=== PATIENT | male | born 1975 | race African-American/Black ===

== ENCOUNTER 2021-07-23 03:37 | Emergency (ER) | payer OTHER ==
--- NOTE | ~2021-07-23 | EMS ---
[address] [address] EMS Patient Care Report Name: RALEIGH KING Room #: DEP BRENT Trinh#: [id number] Admission: 07/23/21 Attend Phys: Discharge: 07/23/21 Date of : 79 Report #: [id number] THIS REPORT FOR: //name// Report Transmitted: 07/26/2021 14:29 EMS Care Summary [place], [place]/[facility] Incident [id number] @ 07/23/2021 02:45 Incident Location [address] Patient RALEIGH KING Male, 46 Years 1975 Patient Address [address] [place] [address] Patient History Congestive Heart Failure (CHF), Chief Complaint cardiac arrest Disposition Transported Lights/[place] Dispatch Reason Cardiac Arrest/ Transported To [facility] Narrative ems met gfd on scene. several family members were in hallway outside of pts apartment and more family were inside apartment. pt was just inside of apartment doorway and was supine receiving cpr by gfd. gfd stated they administered x3 200j shocks for pts presenting rhythm of vfib. pts stated pt has been in cardiac arrest before and has chf. gfd reported pts witnessed the arrest. small children were present in the room and were witnessing the resuscitation along with adult age family. the apartment had [address] [address] EMS Patient Care Report Name: RALEIGH KING Room #: DEP [facility]..#: [id number] Admission: 07/23/21 Attend Phys: Discharge: 07/23/21 Date of : 79 Report #: [id number] inadequate lighting and ems made the decision to move pt into ambulance due to inadequate conditions and for modesty of pts family. pt was placed on a moe semiconductor engineer and was carried to ems cot. pt was transferred onto ems cot and was secured in a supine position without incident. pt was loaded into ambulance. c120, ems, and x3 gfd were in ambulance. gfd stated they would obtain access. gfd placed a 45mm io in pts L humural head. io aspirated blood contents and flowed patently. pt had heavy emesis present that required frequent heavy suctioning. size 4 igel was placed and secured. etco2 was obtained. pt was administered 6bpm via bvm at 15lpm. pt remained in vfib while on scene and m42 ems delivered a total of x4 200j shocks with 1 shock per rhythm check, plus x3 shocks per gfd correctional officer captain of ems for a total of 7 shocks at 200j. shocks were unable to be administered q 2 min due to lack of als resources and gfd being unfamiliar with [facility] protocols and equipment. pt was administered 300mg amiodarone io. pt was administered a total of x5 epi doses via io at 1mg q 3-5 minutes throughout arrest. pt was administered an additional 150mg amiodarone via io. heavy emesis was suctioned routinely. pt was transported emergent to [facility] with x2 gfd. during transport pts rhythm converted to pea. pt remained in pea for the rest of contact. transport was otherwise uneventful. pt care was transferred to appropriate staff and ems goes back in service. Initial Vitals @03:12P: 0,R: 0, @03:21P: 0,R: 6,EtCO2: 23, @03:22P: 0,R: 6,EtCO2: 20,SpO2: 79, @03:19P: 0,R: 6,EtCO2: 26,SpO2: 72, @03:15P: 0,R: 6,EtCO2: 35,SpO2: 67, @03:16P: 0,R: 6,EtCO2: 35, @03:24P: 0,R: 6,EtCO2: 23,SpO2: 51, @03:27P: 0,R: 6,EtCO2: 14,SpO2: 49, @03:10P: 0,R: 0, @03:21P: 0,R: 6,EtCO2: 20,SpO2: 69, @03:28P: 0,R: 6,EtCO2: 11, @03:39P: 0,R: 6,EtCO2: 23, @03:17P: 0,R: 6,EtCO2: 38,SpO2: 74, @03:33P: 0,R: 6,EtCO2: 17, @03:37P: 0,R: 6,EtCO2: 25, @03:20P: 0,R: 6,EtCO2: 22,SpO2: 73, @03:26P: 0,R: 6,EtCO2: 16,SpO2: 52, @03:27P: 0,R: 6, @03:16P: 0,R: 6,EtCO2: 31,SpO2: 66, @03:38P: 0,R: 6,EtCO2: 19, @03:16P: 0,R: 6,EtCO2: 32, @03:21P: 0,R: 6, @03:11P: 0,R: 0,GCS: 3, @03:09P: 0,R: 0,Pain: 0/10,GCS: 3, @03:13P: 0,R: 6,GCS: 3,Glucose: 157,EtCO2: 13,SpO2: 78, [facility] [address] [place] [address] EMS Patient Care Report Name: RALEIGH KING Room #: DEP Ziggy#: [id number] Admission: 07/23/21 Attend Phys: Discharge: 07/23/21 Date of : 79 Report #: [id number] @03:31P: 0,R: 6,GCS: 3,EtCO2: 14, Assessments @04:39MENTAL:Unresponsive,SKIN:No Abnormalities,HEENT:Head/Face: No Abnormalities,Eyes: No Abnormalities,Neck/Airway: No Abnormalities,LUNG SOUNDS:General: No Abnormalities,Left Upper: No Abnormalities,Right Upper: No Abnormalities,Left Lower: No Abnormalities,Right Lower: No Abnormalities,ABDOMEN:General: No Abnormalities,Left Upper: No Abnormalities,Right Upper: No Abnormalities,Left Lower: No Abnormalities,Right Lower: No Abnormalities,PELVIS//GI:No Abnormalities,EXTREMITIES:Left Arm: No Abnormalities,Right Arm: No Abnormalities,Left Leg: No Abnormalities,Right Leg: No Abnormalities,PULSE:NEURO:No Abnormalities,@04:40MENTAL:Unresponsive,SKIN:No Abnormalities,HEENT:Head/Face: No Abnormalities,Eyes: No Abnormalities,Neck/Airway: No Abnormalities,LUNG SOUNDS:General: No Abnormalities,Left Upper: No Abnormalities,Right Upper: No Abnormalities,Left Lower: No Abnormalities,Right Lower: No Abnormalities,ABDOMEN:General: No Abnormalities,Left Upper: No Abnormalities,Right Upper: No Abnormalities,Left Lower: No Abnormalities,Right Lower: No Abnormalities,PELVIS//GI:No Abnormalities,EXTREMITIES:Left Arm: No Abnormalities,Right Arm: No Abnormalities,Left Leg: No Abnormalities,Right Leg: No Abnormalities,PULSE:NEURO:No Abnormalities, Impression Cardiac arrest Procedures @02:58 ALS Assessment Response: UnchangedSucceeded @03:14 Response: UnchangedSucceeded @03:12 Epinephrine 1:10 - 1 Milligrams (mg) - Intraosseous (IO) Response: Unchanged @03:19 Response: UnchangedSucceeded @CRUSHER MACHINE OPERATOR Response: UnchangedSucceeded @03:10 Response: UnchangedSucceeded @03:27 Response: UnchangedSucceeded @03:17 Epinephrine 1:10 - 1 Milligrams (mg) - Intraosseous (IO) Response: Unchanged @CRUSHER MACHINE OPERATOR Response: UnchangedSucceeded @CRUSHER MACHINE OPERATOR Response: UnchangedSucceeded @03:11 Intraosseous - Normal Saline (.9% NaCl) 100cc (EZ-IO (Yellow 45mm)) Site: OE-Bljmanm-Mzeq Response: UnchangedSucceeded @CRUSHER MACHINE OPERATOR Response: UnchangedSucceeded @03:22 Epinephrine 1:10 - 1 Milligrams (mg) - Intraosseous (IO) Response: Unchanged @03:27 Epinephrine 1:10 - 1 Milligrams (mg) - Intraosseous (IO) Response: Unchanged @04:52 Oxygen FlowRate: 15 Device: Bag Valve Mask (BVM) Response: [facility] [address] [place] [address] EMS Patient Care Report Name: KINGRALEIGH Room #: DEP BRENT Trinh#: [id number] Admission: 07/23/21 Attend Phys: Discharge: 07/23/21 Date of : 79 Report #: [id number] UnchangedSucceeded @04:52 iGEL Complications: Patient Vomiting/Aspiration, Response: UnchangedSucceeded @03:32 Epinephrine 1:10 - 1 Milligrams (mg) - Intraosseous (IO) Response: Unchanged Timeline CRUSHER MACHINE OPERATOR,Response: UnchangedSucceeded, CRUSHER MACHINE OPERATOR,Response: UnchangedSucceeded, CRUSHER MACHINE OPERATOR,Response: UnchangedSucceeded, CRUSHER MACHINE OPERATOR,Response: UnchangedSucceeded, 02:42,Call Received 02:42,Dispatch Notified 02:45,Dispatched 02:47,En Route 02:57,On Scene 02:58,At Patient 02:58,ALS Assessment,Response: UnchangedSucceeded, 03:09,BP: / M,PULSE: 0,RR: 0 R,SPO2: Ox,ETCO2: ,BG: ,PAIN: 0,GCS: 3, 03:10,Response: UnchangedSucceeded, 03:10,BP: / M,PULSE: 0,RR: 0 R,SPO2: Ox,ETCO2: ,BG: ,PAIN: ,GCS: , 03:11,Intraosseous - Normal Saline (.9% NaCl) 100cc EZ-IO (Yellow 45mm) Site: EE-Rievhnq-Kzqs,Response: UnchangedSucceeded, 03:11,BP: / M,PULSE: 0,RR: 0 R,SPO2: Ox,ETCO2: ,BG: ,PAIN: ,GCS: 3, 03:12,Epinephrine 1:10 - 1 Milligrams (mg) - Intraosseous (IO),Response: Unchanged 03:12,BP: / M,PULSE: 0,RR: 0 R,SPO2: Ox,ETCO2: ,BG: ,PAIN: ,GCS: , 03:13,BP: / M,PULSE: 0,RR: 6 R,SPO2: 78 Ox,ETCO2: 13 ,B,PAIN: ,GCS: 3, 03:14,Response: UnchangedSucceeded, 03:15,BP: / M,PULSE: 0,RR: 6 R,SPO2: 67 Ox,ETCO2: 35 ,BG: ,PAIN: ,GCS: , 03:16,BP: / M,PULSE: 0,RR: 6 R,SPO2: 66 Ox,ETCO2: 31 ,BG: ,PAIN: ,GCS: , 03:16,BP: / M,PULSE: 0,RR: 6 R,SPO2: Ox,ETCO2: 32 ,BG: ,PAIN: ,GCS: , 03:16,BP: / M,PULSE: 0,RR: 6 R,SPO2: Ox,ETCO2: 35 ,BG: ,PAIN: ,GCS: , 03:17,Epinephrine 1:10 - 1 Milligrams (mg) - Intraosseous (IO),Response: Unchanged 03:17,BP: / M,PULSE: 0,RR: 6 R,SPO2: 74 Ox,ETCO2: 38 ,BG: ,PAIN: ,GCS: , 03:19,Response: UnchangedSucceeded, 03:19,BP: / M,PULSE: 0,RR: 6 R,SPO2: 72 Ox,ETCO2: 26 ,BG: ,PAIN: ,GCS: , 03:20,BP: / M,PULSE: 0,RR: 6 R,SPO2: 73 Ox,ETCO2: 22 ,BG: ,PAIN: ,GCS: , 03:21,BP: / M,PULSE: 0,RR: 6 R,SPO2: 69 Ox,ETCO2: 20 ,BG: ,PAIN: ,GCS: , 03:21,BP: / M,PULSE: 0,RR: 6 R,SPO2: Ox,ETCO2: 23 ,BG: ,PAIN: ,GCS: , 03:21,BP: / M,PULSE: 0,RR: 6 R,SPO2: Ox,ETCO2: ,BG: ,PAIN: ,GCS: , 03:22,Epinephrine 1:10 - 1 Milligrams (mg) - Intraosseous (IO),Response: Unchanged 03:22,Depart Scene [facility] [address] [facility] [place] [address] EMS Patient Care Report Name: RALEIGH KING Room #: DEP ER MichelineAgustina#: [id number] Admission: 07/23/21 Attend Phys: Discharge: 07/23/21 Date of : 79 Report #: [id number] 03:22,BP: / M,PULSE: 0,RR: 6 R,SPO2: 79 Ox,ETCO2: 20 ,BG: ,PAIN: ,GCS: , 03:24,BP: / M,PULSE: 0,RR: 6 R,SPO2: 51 Ox,ETCO2: 23 ,BG: ,PAIN: ,GCS: , 03:26,BP: / M,PULSE: 0,RR: 6 R,SPO2: 52 Ox,ETCO2: 16 ,BG: ,PAIN: ,GCS: , 03:27,Epinephrine 1:10 - 1 Milligrams (mg) - Intraosseous (IO),Response: Unchanged 03:27,Response: UnchangedSucceeded, 03:27,BP: / M,PULSE: 0,RR: 6 R,SPO2: 49 Ox,ETCO2: 14 ,BG: ,PAIN: ,GCS: , 03:27,BP: / M,PULSE: 0,RR: 6 R,SPO2: Ox,ETCO2: ,BG: ,PAIN: ,GCS: , 03:28,BP: / M,PULSE: 0,RR: 6 R,SPO2: Ox,ETCO2: 11 ,BG: ,PAIN: ,GCS: , 03:31,BP: / M,PULSE: 0,RR: 6 R,SPO2: Ox,ETCO2: 14 ,BG: ,PAIN: ,GCS: 3, 03:32,Epinephrine 1:10 - 1 Milligrams (mg) - Intraosseous (IO),Response: Unchanged 03:33,BP: / M,PULSE: 0,RR: 6 R,SPO2: Ox,ETCO2: 17 ,BG: ,PAIN: ,GCS: , 03:35,At Destination 03:37,BP: / M,PULSE: 0,RR: 6 R,SPO2: Ox,ETCO2: 25 ,BG: ,PAIN: ,GCS: , 03:38,BP: / M,PULSE: 0,RR: 6 R,SPO2: Ox,ETCO2: 19 ,BG: ,PAIN: ,GCS: , 03:39,BP: / M,PULSE: 0,RR: 6 R,SPO2: Ox,ETCO2: 23 ,BG: ,PAIN: ,GCS: , 04:52,iGEL Complications: Patient Vomiting/Aspiration,,Response: UnchangedSucceeded, 04:52,Oxygen FlowRate: 15 Device: Bag Valve Mask (BVM) Response: UnchangedSucceeded, 04:58,Call Closed Disclaimer v1.1 Copyright 2021 [employer] This EMS Care Summary contains data elements from the applicable legal record (which may be displayed differently). It is designed to provide pertinent information for the following purposes: continuity of care, clinical quality, and state data reporting. The complete legal record is available to ED staff and administrators of the receiving hospital in [employer]'s Patient Tracker. All data is provided "as is."
--- NOTE | ~2021-07-23 | EMS ---
[address] [address] EMS Patient Care Report Name: RALEIGH KING Room #: REG BRENT Trinh#: [id number] Admission: 07/23/21 Attend Phys: Discharge: Date of : 79 Report #: [id number] THIS REPORT FOR: //name// Report Transmitted: 07/23/2021 04:28 EMS Care Summary [place], [place]/[facility] Incident [id number] @ 07/23/2021 02:45 Incident Location [address] Patient RALEIGH KING Male, 46 Years 1975 Patient Address [address] [place] [address] Patient History Congestive Heart Failure (CHF), Chief Complaint cardiac arrest Disposition Transported Lights/[place] Dispatch Reason Cardiac Arrest/ Transported To [facility] Narrative ems met gfd on scene. several family members were in hallway outside of pts apartment and more family were inside apartment. pt was just inside of apartment doorway and was supine receiving cpr by gfd. gfd stated they administered x3 200j shocks for pts presenting rhythm of vfib. pts stated pt has been in cardiac arrest before and has chf. gfd reported pts witnessed the arrest. small children were present in the room and were witnessing the resuscitation along with adult age family. the apartment had [address] [address] EMS Patient Care Report Name: RALEIGH KING Room #: REG [facility]..#: [id number] Admission: 07/23/21 Attend Phys: Discharge: Date of : 79 Report #: [id number] inadequate lighting and ems made the decision to move pt into ambulance due to inadequate conditions and for modesty of pts family. pt was placed on a moe pick remover and was carried to ems cot. pt was transferred onto ems cot and was secured in a supine position without incident. pt was loaded into ambulance. c120, ems, and x3 gfd were in ambulance. gfd stated they would obtain access. gfd placed a 45mm io in pts L humural head. io aspirated blood contents and flowed patently. pt had heavy emesis present that required frequent heavy suctioning. size 4 igel was placed and secured. etco2 was obtained. pt was administered 6bpm via bvm at 15lpm. pt remained in vfib while on scene and m42 ems delivered a total of x4 200j shocks with 1 shock per rhythm check, plus x3 shocks per gfd spray stainer of ems for a total of 7 shocks at 200j. shocks were unable to be administered q 2 min due to lack of als resources and gfd being unfamiliar with [facility] protocols and equipment. pt was administered 300mg amiodarone io. pt was administered a total of x5 epi doses via io at 1mg q 3-5 minutes throughout arrest. pt was administered an additional 150mg amiodarone via io. heavy emesis was suctioned routinely. pt was transported emergent to [facility] with x2 gfd. during transport pts rhythm converted to pea. pt remained in pea for the rest of contact. transport was otherwise uneventful. pt care was transferred to appropriate staff and ems goes back in service. Initial Vitals @03:12P: 0,R: 0, @03:21P: 0,R: 6,EtCO2: 23, @03:22P: 0,R: 6,EtCO2: 20,SpO2: 79, @03:19P: 0,R: 6,EtCO2: 26,SpO2: 72, @03:15P: 0,R: 6,EtCO2: 35,SpO2: 67, @03:16P: 0,R: 6,EtCO2: 35, @03:24P: 0,R: 6,EtCO2: 23,SpO2: 51, @03:27P: 0,R: 6,EtCO2: 14,SpO2: 49, @03:10P: 0,R: 0, @03:21P: 0,R: 6,EtCO2: 20,SpO2: 69, @03:28P: 0,R: 6,EtCO2: 11, @03:39P: 0,R: 6,EtCO2: 23, @03:17P: 0,R: 6,EtCO2: 38,SpO2: 74, @03:33P: 0,R: 6,EtCO2: 17, @03:37P: 0,R: 6,EtCO2: 25, @03:20P: 0,R: 6,EtCO2: 22,SpO2: 73, @03:26P: 0,R: 6,EtCO2: 16,SpO2: 52, @03:27P: 0,R: 6, @03:16P: 0,R: 6,EtCO2: 31,SpO2: 66, @03:38P: 0,R: 6,EtCO2: 19, @03:16P: 0,R: 6,EtCO2: 32, @03:21P: 0,R: 6, @03:11P: 0,R: 0,GCS: 3, @03:09P: 0,R: 0,Pain: 0/10,GCS: 3, @03:13P: 0,R: 6,GCS: 3,Glucose: 157,EtCO2: 13,SpO2: 78, [facility] [address] [place] [address] EMS Patient Care Report Name: RALEIGH KING Room #: REG BRENT Trinh#: [id number] Admission: 07/23/21 Attend Phys: Discharge: Date of : 79 Report #: [id number] @03:31P: 0,R: 6,GCS: 3,EtCO2: 14, Assessments @04:39MENTAL:Unresponsive,SKIN:No Abnormalities,HEENT:Head/Face: No Abnormalities,Eyes: No Abnormalities,Neck/Airway: No Abnormalities,LUNG SOUNDS:General: No Abnormalities,Left Upper: No Abnormalities,Right Upper: No Abnormalities,Left Lower: No Abnormalities,Right Lower: No Abnormalities,ABDOMEN:General: No Abnormalities,Left Upper: No Abnormalities,Right Upper: No Abnormalities,Left Lower: No Abnormalities,Right Lower: No Abnormalities,PELVIS//GI:No Abnormalities,EXTREMITIES:Left Arm: No Abnormalities,Right Arm: No Abnormalities,Left Leg: No Abnormalities,Right Leg: No Abnormalities,PULSE:NEURO:No Abnormalities,@04:40MENTAL:Unresponsive,SKIN:No Abnormalities,HEENT:Head/Face: No Abnormalities,Eyes: No Abnormalities,Neck/Airway: No Abnormalities,LUNG SOUNDS:General: No Abnormalities,Left Upper: No Abnormalities,Right Upper: No Abnormalities,Left Lower: No Abnormalities,Right Lower: No Abnormalities,ABDOMEN:General: No Abnormalities,Left Upper: No Abnormalities,Right Upper: No Abnormalities,Left Lower: No Abnormalities,Right Lower: No Abnormalities,PELVIS//GI:No Abnormalities,EXTREMITIES:Left Arm: No Abnormalities,Right Arm: No Abnormalities,Left Leg: No Abnormalities,Right Leg: No Abnormalities,PULSE:NEURO:No Abnormalities, Impression Cardiac arrest Procedures @02:58 ALS Assessment Response: UnchangedSucceeded @03:14 Response: UnchangedSucceeded @03:12 Epinephrine 1:10 - 1 Milligrams (mg) - Intraosseous (IO) Response: Unchanged @03:19 Response: UnchangedSucceeded @AUTO GLASS TECHNICIAN Response: UnchangedSucceeded @03:10 Response: UnchangedSucceeded @03:27 Response: UnchangedSucceeded @03:17 Epinephrine 1:10 - 1 Milligrams (mg) - Intraosseous (IO) Response: Unchanged @AUTO GLASS TECHNICIAN Response: UnchangedSucceeded @AUTO GLASS TECHNICIAN Response: UnchangedSucceeded @03:11 Intraosseous - Normal Saline (.9% NaCl) 100cc (EZ-IO (Yellow 45mm)) Site: RW-Xhivmto-Dcgf Response: UnchangedSucceeded @AUTO GLASS TECHNICIAN Response: UnchangedSucceeded @03:22 Epinephrine 1:10 - 1 Milligrams (mg) - Intraosseous (IO) Response: Unchanged @03:27 Epinephrine 1:10 - 1 Milligrams (mg) - Intraosseous (IO) Response: Unchanged @04:52 Oxygen FlowRate: 15 Device: Bag Valve Mask (BVM) Response: [address] [address] EMS Patient Care Report Name: RALEIGH KING Room #: REG BRENT Trinh#: [id number] Admission: 07/23/21 Attend Phys: Discharge: Date of : 79 Report #: [id number] UnchangedSucceeded @04:52 iGEL Complications: Patient Vomiting/Aspiration, Response: UnchangedSucceeded @03:32 Epinephrine 1:10 - 1 Milligrams (mg) - Intraosseous (IO) Response: Unchanged Timeline AUTO GLASS TECHNICIAN,Response: UnchangedSucceeded, AUTO GLASS TECHNICIAN,Response: UnchangedSucceeded, AUTO GLASS TECHNICIAN,Response: UnchangedSucceeded, AUTO GLASS TECHNICIAN,Response: UnchangedSucceeded, 02:42,Call Received 02:42,Dispatch Notified 02:45,Dispatched 02:47,En Route 02:57,On Scene 02:58,At Patient 02:58,ALS Assessment,Response: UnchangedSucceeded, 03:09,BP: / M,PULSE: 0,RR: 0 R,SPO2: Ox,ETCO2: ,BG: ,PAIN: 0,GCS: 3, 03:10,Response: UnchangedSucceeded, 03:10,BP: / M,PULSE: 0,RR: 0 R,SPO2: Ox,ETCO2: ,BG: ,PAIN: ,GCS: , 03:11,Intraosseous - Normal Saline (.9% NaCl) 100cc EZ-IO (Yellow 45mm) Site: PJ-Sngfmid-Qzhl,Response: UnchangedSucceeded, 03:11,BP: / M,PULSE: 0,RR: 0 R,SPO2: Ox,ETCO2: ,BG: ,PAIN: ,GCS: 3, 03:12,Epinephrine 1:10 - 1 Milligrams (mg) - Intraosseous (IO),Response: Unchanged 03:12,BP: / M,PULSE: 0,RR: 0 R,SPO2: Ox,ETCO2: ,BG: ,PAIN: ,GCS: , 03:13,BP: / M,PULSE: 0,RR: 6 R,SPO2: 78 Ox,ETCO2: 13 ,B,PAIN: ,GCS: 3, 03:14,Response: UnchangedSucceeded, 03:15,BP: / M,PULSE: 0,RR: 6 R,SPO2: 67 Ox,ETCO2: 35 ,BG: ,PAIN: ,GCS: , 03:16,BP: / M,PULSE: 0,RR: 6 R,SPO2: 66 Ox,ETCO2: 31 ,BG: ,PAIN: ,GCS: , 03:16,BP: / M,PULSE: 0,RR: 6 R,SPO2: Ox,ETCO2: 32 ,BG: ,PAIN: ,GCS: , 03:16,BP: / M,PULSE: 0,RR: 6 R,SPO2: Ox,ETCO2: 35 ,BG: ,PAIN: ,GCS: , 03:17,Epinephrine 1:10 - 1 Milligrams (mg) - Intraosseous (IO),Response: Unchanged 03:17,BP: / M,PULSE: 0,RR: 6 R,SPO2: 74 Ox,ETCO2: 38 ,BG: ,PAIN: ,GCS: , 03:19,Response: UnchangedSucceeded, 03:19,BP: / M,PULSE: 0,RR: 6 R,SPO2: 72 Ox,ETCO2: 26 ,BG: ,PAIN: ,GCS: , 03:20,BP: / M,PULSE: 0,RR: 6 R,SPO2: 73 Ox,ETCO2: 22 ,BG: ,PAIN: ,GCS: , 03:21,BP: / M,PULSE: 0,RR: 6 R,SPO2: 69 Ox,ETCO2: 20 ,BG: ,PAIN: ,GCS: , 03:21,BP: / M,PULSE: 0,RR: 6 R,SPO2: Ox,ETCO2: 23 ,BG: ,PAIN: ,GCS: , 03:21,BP: / M,PULSE: 0,RR: 6 R,SPO2: Ox,ETCO2: ,BG: ,PAIN: ,GCS: , 03:22,Epinephrine 1:10 - 1 Milligrams (mg) - Intraosseous (IO),Response: Unchanged 03:22,Depart Scene [facility] [address] [place] [address] EMS Patient Care Report Name: RALEIGH KING [id number] Admission: 07/23/21 Attend Phys: Discharge: Date of : 79 Report #: [id number] 03:22,BP: / M,PULSE: 0,RR: 6 R,SPO2: 79 Ox,ETCO2: 20 ,BG: ,PAIN: ,GCS: , 03:24,BP: / M,PULSE: 0,RR: 6 R,SPO2: 51 Ox,ETCO2: 23 ,BG: ,PAIN: ,GCS: , 03:26,BP: / M,PULSE: 0,RR: 6 R,SPO2: 52 Ox,ETCO2: 16 ,BG: ,PAIN: ,GCS: , 03:27,Epinephrine 1:10 - 1 Milligrams (mg) - Intraosseous (IO),Response: Unchanged 03:27,Response: UnchangedSucceeded, 03:27,BP: / M,PULSE: 0,RR: 6 R,SPO2: 49 Ox,ETCO2: 14 ,BG: ,PAIN: ,GCS: , 03:27,BP: / M,PULSE: 0,RR: 6 R,SPO2: Ox,ETCO2: ,BG: ,PAIN: ,GCS: , 03:28,BP: / M,PULSE: 0,RR: 6 R,SPO2: Ox,ETCO2: 11 ,BG: ,PAIN: ,GCS: , 03:31,BP: / M,PULSE: 0,RR: 6 R,SPO2: Ox,ETCO2: 14 ,BG: ,PAIN: ,GCS: 3, 03:32,Epinephrine 1:10 - 1 Milligrams (mg) - Intraosseous (IO),Response: Unchanged 03:33,BP: / M,PULSE: 0,RR: 6 R,SPO2: Ox,ETCO2: 17 ,BG: ,PAIN: ,GCS: , 03:35,At Destination 03:37,BP: / M,PULSE: 0,RR: 6 R,SPO2: Ox,ETCO2: 25 ,BG: ,PAIN: ,GCS: , 03:38,BP: / M,PULSE: 0,RR: 6 R,SPO2: Ox,ETCO2: 19 ,BG: ,PAIN: ,GCS: , 03:39,BP: / M,PULSE: 0,RR: 6 R,SPO2: Ox,ETCO2: 23 ,BG: ,PAIN: ,GCS: , 04:52,iGEL Complications: Patient Vomiting/Aspiration,,Response: UnchangedSucceeded, 04:52,Oxygen FlowRate: 15 Device: Bag Valve Mask (BVM) Response: UnchangedSucceeded, 04:58,Call Closed Disclaimer v1.1 Copyright 2021 [employer] This EMS Care Summary contains data elements from the applicable legal record (which may be displayed differently). It is designed to provide pertinent information for the following purposes: continuity of care, clinical quality, and state data reporting. The complete legal record is available to ED staff and administrators of the receiving hospital in [employer]'s Patient Tracker. All data is provided "as is."
== END 2021-07-23 03:55 ==
LOC: ER 03:37
DX: I46.9 Cardiac arrest, cause unspecified (principal); I50.9 Heart failure, unspecified